=== PATIENT | female | born 1980 | race Two or more races ===

== ENCOUNTER 2023-06-04 07:29 | Inpatient (IN) | payer MEDICAID ==
[2023-05-27 14:06] LABS: BASOPHILS # (AUTO) 0.1 X10'3 (0-0.2); BASOPHILS % (AUTO) 0.6 % (0-1); EOSINOPHILS # (AUTO) 0.2 X10'3 (0-0.9); EOSINOPHILS % (AUTO) 1.5 % (0-6); LYMPHOCYTES # (AUTO) 2.6 X10'3 (1.1-4.8); LYMPHOCYTES % (AUTO) 24.4 % (21-51); MEAN CORPUSCULAR HEMOGLOBIN 30.8 PG (27.0-31.0); MEAN CORPUSCULAR HGB CONC 33.6 g/dL (33.0-36.5); MEAN CORPUSCULAR VOLUME 91.6 FL (78-98); MEAN PLATELET VOLUME 8.6 FL (7.4-10.4); MONOCYTES # (AUTO) 0.8 X10'3 (0-0.9); MONOCYTES % (AUTO) 7.6 % (2-12); NEUTROPHILS # (AUTO) 7.1 X10'3 (1.8-7.7); NEUTROPHILS % (AUTO) 65.9 % (42-75); PRE OP HEMATOCRIT 41.4 % (35.0-45.0); PRE OP HEMOGLOBIN 13.9 g/dL (12.0-16.0); PRE OP PLATELET COUNT 294 X10'3 (140-440); PRE OP WHITE BLOOD COUNT 10.8 10'3 (4.8-10.8); RED BLOOD COUNT 4.52 X10'6 (4.20-5.60); RED CELL DISTRIBUTION WIDTH 14.3 % (11.5-14.5)
[2023-05-27 14:29] LABS: ALBUMIN 3.5 G/DL (3.4-5.0); ALBUMIN/GLOBULIN RATIO 0.9 (1.1-1.5); ALKALINE PHOSPHATASE 80 IU/L (46-116); BLOOD UREA NITROGEN 17 MG/DL (7-18); CALCIUM 9.2 MG/DL (8.5-10.1); CHLORIDE 102 MMOL/L (99-107); CREATININE 0.74 MG/DL (0.40-0.90); PRE OP ALT 25 U/L (30-65); PRE OP ANION GAP 7 (8-16); PRE OP AST 15 U/L (10-37); PRE OP BILIRUB, TOTAL 0.3 MG/DL (0.0-1.0); PRE OP GLUCOSE 93 MG/DL (70-104); PRE OP POTASSIUM 4.2 MMOL/L (3.4-5.1); PRE OP SODIUM 136 MMOL/L (135-145); TOTAL CARBON DIOXIDE 26.8 MMOL/L (24-32); TOTAL PROTEIN 7.5 G/DL (6.4-8.2); eGFR 85 ML/MIN
[2023-05-27 17:26] LABS: BETA HCG,QUANTITATIVE 2 mIU/ml
[~2023-06-04] VITALS: Ht 165.1 cm; Wt 145.0 kg
[2023-06-04] VITALS (20 sets, daily range): BP systolic 99–130; BP diastolic 56–85; PULSE 60–90; RESP 14–28; TEMP 96.6–98.4; O2SAT 93–98
[~2023-06-04 07:29] MED LIST: IBUP-1985 PO; LISI10TA27 PO; ceFAZolin inj. 3,000 MG in normal saline 100ml IV soln 100 ML IV ONE; famotidine 20mg tablet PO ONE; ringers solution, lacted 1,000 ML IV SCH
[2023-06-04] MEDS ORDERED: propofol inj 20 ML IV ONE ×2 (10:21)
[2023-06-04] MEDS ORDERED: fentaNYL /PF 50mcg/ml 5ml ampule ONE (10:21)
[2023-06-04] MEDS ORDERED: LIDOcaine 2% (20mg/ml) 5ml vial ONE (10:21)
[2023-06-04] MEDS ORDERED: succinylcholine 20mg/ml inj IV ONE (10:22)
[2023-06-04] MEDS ORDERED: ondansetron/PF 4mg/2ml inj ONE (10:22)
[2023-06-04] MEDS ORDERED: ROPIVAcaine 0.5% (5mg/ml) 30ml vial ONE (10:23)
[2023-06-04] MEDS ORDERED: desflurane 240ml liquid inh. IH ONE (10:25)
[2023-06-04] MEDS ORDERED: dexamethasone sod phosphate 10mg/ml inj ONE (10:25)
[2023-06-04] MEDS ORDERED: ringers solution, lacted 1,000 ML IV SCH (11:15)
[2023-06-04] MEDS ORDERED: hydrALAZINE 20mg/ml inj. IV PRN (11:15)
[2023-06-04] MEDS ORDERED: ondansetron/PF 4mg/2ml inj IV PRN ×2 (11:15→12:55)
[2023-06-04] MEDS ORDERED: morphine 2 MG/ML inj. syringe IV PRN (11:15)
[2023-06-04] MEDS ORDERED: fentaNYL/PF 50MCG/1 ML 2ML syringe IV PRN ×2 (11:15)
[2023-06-04] MEDS ORDERED: labetalol 20mg/4ml (5mg/ml) syringe IV PRN (11:15)
[2023-06-04] MEDS ORDERED: acetaminophen 1,000mg/100ml IV 100 ML IV ONE (11:52)
--- NOTE | 2023-06-04 12:24 | NUR ---
Received from OR via [facility] TO RR 7, accompanied by Anesthesiologist DR GRAHAM and report given by Anesthesiolgist. PT PRESENTS WITH PIV 20G LEFT FOREARM, RIGHT SHOULDER WRAP WIT POWDER PACK AND SLING, SPO2 96% 6L MASK, VSS. Addendum: 06/04/23 at 1238 by Sruthi Alfaro RN, RN Amended: Links added.
--- NOTE | 2023-06-04 12:45 | NUR ---
PT MOVED FROM A GURNEY TO HOSPITAL BED. Addendum: 06/04/23 at 1310 by Sruthi Alfaro RN, RN Amended: Links added.
[2023-06-04] MEDS: morphine 4 MG/ML inj SYRINge IV PRN ×2 (12:51→13:08)
[2023-06-04] MEDS ORDERED: oxyCODONE IR 5mg (immed. release) tablet PO PRN (12:55)
[2023-06-04] MEDS ORDERED: magnesium hydroxide 30ml (MOM) UD suspension PO PRN (12:55)
[2023-06-04] MEDS ORDERED: HYDROmorphone 1 mg/ml syringe IV PRN (12:55)
[2023-06-04] MEDS ORDERED: ibuprofen 200mg tablet PO PRN (12:55)
[2023-06-04] MEDS ORDERED: diphenhydrAMINE 25mg capsule PO PRN ×2 (12:55)
[2023-06-04] MEDS ORDERED: acetaminophen 325mg tablet PO PRN (12:55)
[2023-06-04] MEDS ORDERED: bisacodyl 10mg suppository rectal RC PRN (12:55)
[2023-06-04] MEDS ORDERED: naloxone 0.4 mg/ml inj IV PRN (12:55)
[2023-06-04] MEDS ORDERED: HYDROmorphone inj. 0.5 MG/0.5 ML DISP.SYRIN IV PRN (12:55)
--- NOTE | 2023-06-04 13:44 | NUR ---
Report called to receiving nurse MICHAEL ALEJANDRO. Transferred via [facility] B[facility] TO ROOM 4006. BED IN LOW LOCKED POSITION WITH CALL LIGHT IN REACH, PT HOOKED UP TO BEDSIDE VIATLS MACHINE. PT CALLED AND REPRTED PT IN ROOM 4006. PT'S CHART TAKEN TO NURSES STATION. Belongings 1 PT BELONGING BAG TAKEN TO ROOM WITH PT. Special Issues communicated to receiving nurse. Addendum: 06/04/23 at 1355 by Sruthi Alfaro RN RN Amended: Links added.
--- NOTE | 2023-06-04 13:45 | NUR ---
Assumed patient care, patient orient to call light, room and fall precautions. questions answered.
[2023-06-04] MEDS: acetaminophen 325mg tablet PO SCH ×2 (13:59→20:00)
[2023-06-04] MEDS: ceFAZolin/D5W- 1GM premix 50 ML IV SCH (16:15)
[2023-06-04] MEDS: potassium cl 20mEq in 1/2 NS 1,000 ML IV SCH ×2 (16:55→20:15)
--- NOTE | 2023-06-04 18:00 | NUR ---
Patient in room ORTHO 4006. I have received report from MARLENY Pink and had the opportunity to ask questions and assume patient care.
--- NOTE | 2023-06-04 18:10 | NUR ---
Problems reprioritized. Patient report given, questions answered & plan of care reviewed with Lucille ALEJANDRO.
[2023-06-04] MEDS ORDERED: sennosides 8.6mg tablet PO SCH (21:00)
[2023-06-05] MEDS: ceFAZolin/D5W- 1GM premix 50 ML IV SCH (00:02)
[2023-06-05] MEDS: acetaminophen 325mg tablet PO SCH ×2 (01:38→07:21)
[2023-06-05 02:00] VITALS: BP 107/65; PULSE 62; RESP 16; TEMP 98.2; O2SAT 95
[2023-06-05] MEDS: potassium cl 20mEq in 1/2 NS 1,000 ML IV SCH ×2 (03:30→12:55)
[2023-06-05 06:00] VITALS: BP 106/68; PULSE 55; RESP 16; TEMP 97.9; O2SAT 96
--- NOTE | 2023-06-05 06:20 | NUR ---
Problems reprioritized. Patient report given, questions answered & plan of care reviewed with MARLENY Monte.
[2023-06-05 08:00] VITALS: RESP 16; O2SAT 96
[2023-06-05] MEDS ORDERED: lisinopril 10 MG tablet PO SCH (08:00)
[2023-06-05] MEDS ORDERED: aspirin 325mg tablet PO SCH (08:30)
[2023-06-05 09:24] LABS: BASOPHILS % (AUTO) 0.3 % (0-1); EOSINOPHILS % (AUTO) 0.1 % (0-6); HEMATOCRIT 38.7 % (35.0-45.0); HEMOGLOBIN 12.7 g/dl (12.0-16.0); LYMPHOCYTES # (AUTO) 1.8 X10'3 (1.1-4.8); LYMPHOCYTES % (AUTO) 13.6 % (21-51); MEAN CORPUSCULAR HEMOGLOBIN 30.4 PG (27.0-31.0); MEAN CORPUSCULAR HGB CONC 32.9 g/dL (33.0-36.5); MEAN CORPUSCULAR VOLUME 92.3 FL (78-98); MEAN PLATELET VOLUME 9.2 FL (7.4-10.4); MONOCYTES # (AUTO) 0.9 X10'3 (0-0.9); MONOCYTES % (AUTO) 6.4 % (2-12); NEUTROPHILS # (AUTO) 10.7 X10'3 (1.8-7.7); NEUTROPHILS % (AUTO) 79.6 % (42-75); PLATELET COUNT 255 X10'3 (140-440); RED CELL DISTRIBUTION WIDTH 14.6 % (11.5-14.5); WHITE BLOOD COUNT 13.5 X10'3 (4.5-11.0)
[2023-06-05 09:29] LABS: ANION GAP 6 (8-16); CHLORIDE 103 MMOL/L (99-107); POTASSIUM 3.9 MMOL/L (3.5-5.1); SODIUM 136 MMOL/L (135-145); TOTAL CARBON DIOXIDE 26.7 MMOL/L (24-32)
[2023-06-05] MEDS: oxyCODONE IR 5mg (immed. release) tablet PO PRN ×2 (09:41→13:50)
[2023-06-05 10:00] VITALS: BP 109/64; PULSE 77; RESP 16; RESP 20; TEMP 97.3; O2SAT 96
--- NOTE | 2023-06-05 10:00 | NUR ---
Patient assessment completed. All primary caer given to MARLENY Monte, I am available for questions or concerns.
[2023-06-05 13:50] VITALS: RESP 16
--- NOTE | 2023-06-05 15:32 | NUR ---
Pt stable for d/c. Pt signed all d/c paperwork, IV D/C. Patient left with powder packs and personal belongings. Family present at the time of discharge. Patient was assisted down to lobby with the assistance of 1 staff member via wheelchair and got into private vehicle with family to go home. D/C @ 3054.
[2023-06-06] MEDS ORDERED: acetaminophen 325mg tablet PO PRN (12:55)
== END 2023-06-05 14:00 | disposition home or self-care (01) | DRG 317 ==
LOC: PAS IN 07:29 → EDSTATUS 07:30 → ORTHO 4S 13:45
PROVIDERS: ADMIT Orthopaedic Surgery; ATTEND Orthopaedic Surgery
PROC: 3E0T3BZ Introduction of Anesthetic Agent into Peripheral Nerves and Plexi, Percutaneous Approach (ICD-10-PCS; 2023-06-04)
PROC: 3E0T33Z Introduction of Anti-inflammatory into Peripheral Nerves and Plexi, Percutaneous Approach (ICD-10-PCS; 2023-06-04)
PROC: 0PB94ZZ Excision of Right Clavicle, Percutaneous Endoscopic Approach (ICD-10-PCS; 2023-06-04)
PROC: 0LM14ZZ Reattachment of Right Shoulder Tendon, Percutaneous Endoscopic Approach (ICD-10-PCS; principal; 2023-06-04 10:25)
DX: M75.121 Complete rotator cuff tear or rupture of right shoulder, not specified as traumatic (principal); Z68.43 Body mass index [BMI] 50.0-59.9, adult; M19.011 Primary osteoarthritis, right shoulder; E66.01 Morbid (severe) obesity due to excess calories; I10 Essential (primary) hypertension; E03.9 Hypothyroidism, unspecified; G47.30 Sleep apnea, unspecified; M75.21 Bicipital tendinitis, right shoulder; M75.41 Impingement syndrome of right shoulder; G89.29 Other chronic pain; M75.51 Bursitis of right shoulder; Z98.891 History of uterine scar from previous surgery
CPT/HCPCS: 36415; 80051; 80053; 82948; 84702; 85025; 97161; 97530; A4615; G0378; J0131; J0330; J0690; J1100; J1170; J2270; J2405; J2704; J2795; J3010; J3480; J3490; J7120

== ENCOUNTER 2025-07-04 16:51 | Emergency (ER) | payer MEDICAID ==
[~2025-07-04] VITALS: Ht 165.1 cm; Wt 132.9 kg
[~2025-07-04 16:51] MED LIST changes: -IBUP-1985 PO; +IBUP600T52 PO; -ceFAZolin inj. 3,000 MG in normal saline 100ml IV soln 100 ML IV ONE; -famotidine 20mg tablet PO ONE; -ringers solution, lacted 1,000 ML IV SCH
--- NOTE | 2025-07-04 17:03 | ELECTROCARDIOGRAPH REPORT ---
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
[2025-07-04 17:47] LABS: MEAN PLATELET VOLUME 9.2 FL (7.4-10.4); RED CELL DISTRIBUTION WIDTH 14.3 % (11.5-14.5)
--- NOTE | 2025-07-04 17:47 | RADIOLOGY REPORT ---
CLINICAL INDICATION: ELBOW PAIN LEFT TECHNIQUE: DI ELBOW, COMPLETE (3VW MIN) COMPARISON: None FINDINGS/IMPRESSION: : There is no evidence of acute fracture or dislocation. Soft tissues are unremarkable.
--- NOTE | 2025-07-04 17:50 | RADIOLOGY REPORT ---
EXAM: DI CHEST,SINGLE VIEW CLINICAL HISTORY: CP TECHNIQUE: Single AP view of the chest WID: COMPARISON: None FINDINGS: Lines and tubes: None Chest: The heart size and pulmonary vasculature is within normal limits. No pleural effusion, pneumothorax, or consolidation. The osseous structures are grossly intact. IMPRESSION: 1. No acute cardiopulmonary abnormality.
[2025-07-04 18:28] LABS: CREATININE 0.72 MG/DL (0.40-0.90); PRO BRAIN NATRIURETIC PEPTIDE 65 PG/ML (0-125); TOTAL CARBON DIOXIDE 30.0 MMOL/L (24-32); eCRCL 88 ML/MIN; eGFR 87 ML/MIN
[2025-07-04 21:34] VITALS: BP 118/70; PULSE 92; RESP 16; TEMP 98.3; O2SAT 98
--- NOTE | 2025-07-04 21:55 | Physician Documentation ---
History of Present Illness ~ Chief Complaint: Arm Pain Stated Complaint: L ARM PAIN Time Seen by MD: 18:21 Mode of Arrival: POV HPI 44-year-old obese female who presents to the emergency department with a vague complaints of left upper extremity pain with waxing and waning left upper chest discomfort. Symptoms has been present for approximately 20 days. There has been no reported palpitations and/or near-syncope or syncope. No reported dyspnea on exertion or orthopnea. Pain has been persistent to just distal the lateral condyle. There is no change in girth or asymmetry of upper extremities. There is no facial plethora. She does report that last year she had surgery on her right shoulder and feels that she may be overdoing it with a left upper extremity and compensation. Tetanus within 5 years: Yes Medication Reconciliation Allergies: Coded Allergies: No Known Drug Allergies (Verified Allergy, Unknown, 06/03/23) Scheduled Ibuprofen* (Motrin*), 1 TAB PO Q8H Lisinopril (Lisinopril), 1 TAB PO DAILY, (Reported) Scheduled PRN Ibuprofen (Ibuprofen), 1 TAB PO PRN PRN for pain, (Reported) Review of Systems All Other Systems at this time: Reviewed and Negative Constitutional: Reports: see HPI Respiratory: Reports: see HPI Cardiovascular: Reports: see HPI Musculoskeletal: Reports: see HPI Physical Exam Vital Signs: RN Vital Signs have been reviewed: Yes, Temperature: 98.3, Source: Oral, Heart Rate: 92, Respiratory Rate: 16, BP: 118/70, Pulse Oximetry: 98, Weight: 132.900 Oxygen Flow Rate: 0 General Appearance: alert, WD/WN, other (Anxious) EENT: PERRL/EOMI Neck: normal inspection Respiratory: lungs clear Chest: no accessory muscle use Cardiovascular: normal peripheral pulses; No: no gallop, no JVD, no murmur, tachycardia, diastolic murmur, systolic murmur Gastrointestinal: non-tender Back: normal inspection Shoulder: normal inspection Elbow/Forearm: other (Tenderness to palpation of the lateral epicondyle) Wrist: normal inspection Hand: normal inspection Digit: normal inspection Skin: normal color Neurologic: oriented x4 Psychiatric: normal mood/affect Progress Results/Orders Results/Orders Orders - MINNIE SPARKS PAC Vl Venous (07/04/25 20:02) Completed Orders - MINNIE SPARKS PAC Vl Venous (07/04/25 20:02) Vital Signs 07/04/25 07/04/25 07/04/25 07/04/25 16:54 19:19 19:21 20:35 Temp 98.3 98.3 98.3 Pulse 101 104 76 Resp 18 16 16 B/P (MAP) 168/93 162/94 (116) 125/69 (87) Pulse Ox 98 100 98 O2 Flow Rate 0 0 0 07/04/25 21:34 Temp 98.3 Pulse 92 Resp 16 B/P (MAP) 118/70 (86) Pulse Ox 98 O2 Flow Rate 0 Laboratory Tests Test 07/04/25 17:20 07/04/25 19:05 White Blood Count 8.6 Red Blood Count 4.50 Hemoglobin 13.5 Hematocrit 40.6 Mean Corpuscular Volume 90.3 Mean Corpuscular Hemoglobin 30.0 Mean Corpuscular Hemoglobin Concent 33.3 Red Cell Distribution Width 14.3 Platelet Count 292 Mean Platelet Volume 9.2 Neutrophils (%) (Auto) 65.1 Lymphocytes (%) (Auto) 25.4 Monocytes (%) (Auto) 7.0 Eosinophils (%) (Auto) 1.9 Basophils (%) (Auto) 0.6 Neutrophils # (Auto) 5.6 Lymphocytes # (Auto) 2.2 Monocytes # (Auto) 0.6 Eosinophils # (Auto) 0.2 Basophils # (Auto) 0.1 CBC Comment Sodium Level 142 Potassium Level 3.8 Chloride Level 105 Carbon Dioxide Level 30.0 Anion Gap 7 L Blood Urea Nitrogen 15 Creatinine 0.72 Estimated GFR/1.73 m2 87 BUN/Creatinine Ratio 20.8 H Glucose Level 106 H Calcium Level 8.3 L Troponin I High Sensitivity 4 5 Pro-B-Type Natriuretic Peptide 65 Albumin 3.6 Chemistry Comments Troponin I High Sens Percent Delta 25 Troponin I Hi Sens Absolute Change 1 Medical Decision Making Additional information obtaine: N/A Findings After extensive workup that began in triage her examination history is consistent with lateral epicondylitis. Ultrasound imaging to evaluate for thrombus and laboratory screening, chest x-ray and EKG all within normal limits. Patient is safe for discharge in the emergency department with instructions to follow up with the primary care physician for consideration of procedural care by orthopedist and to obtain epicondyle band for comfort and support. General Diff Dx:Considerations: Include: Abrasion, Contusion, Fracture, Hematoma, Laceration, Malunion, Neurovascular injury, Open fracture, Sprain, Ulcer, Other (SVS) Shoulder Diff Dx:Consideration: Include: Bicipital tendonitis, Calcific tendonitis, Impingement syndrome, Rotator cuff injury, Other Elbow Diff Dx:Considerations: Include: Radial head subluxation, Rheumatoid arthritis, Septic, Sprain, Other (Tripped over) Wrist Diff Dx:Considerations: Include: Other Hand Diff Dx:Considerations: Include: Other Finger Diff Dx:Considerations: Include: Other (ntributory contributory) Departure Disposition: HOME / SELF CARE / HOMELESS Impression: Primary Impression: Lateral epicondylitis Qualified Codes: M77.12 - Lateral epicondylitis, left elbow Discharge Instructions: Epicondylitis, Lateral (Tennis Elbow) with Rehab- SportsMed, Tendinitis Additional Instructions: Please begin ibuprofen for tendonitis. Please visit your local pharmacy and obtain a tendinitis band for your forearm. Make follow up appointment with the primary care physician. All screening labs and imaging obtained in the emergency department tonight are all reassuring. Thank you for visiting [facility]. Referrals: NO PRIMARY CARE PROVIDER (PCP) Prescriptions Ibuprofen* (Motrin*) 400 Mg Tablet 1 TAB PO Q8H for pain or fever for 10 Days, #30 TAB Prov: MINNIE SPARKS 07/04/25 Education Educated: Patient Educated regarding: diagnosis, treatment, prognosis, need for follow up Signature Scribe Signature: . Attestation: . MINNIE SPARKS Jul 04, 2025 21:55
[2025-07-04] MEDS ORDERED: IBUP-1984 PO (21:56)
--- NOTE | 2025-07-04 22:12 | VASCULAR REPORT ---
RIGHT Upper Extremity Venous Duplex CLINICAL HISTORY: Left arm pain COMPARISON: None TECHNIQUE: Duplex Doppler evaluation of the venous system of the left lower neck and upper extremity including color Doppler and spectral/pulsed waveform analysis was performed. FINDINGS: The internal jugular vein demonstrates appropriate compressibility and waveform variability. The subclavian vein is patent on color Doppler evaluation without intraluminal thrombus and demonstrates waveform variability. The visualized portion of the brachiocephalic vein is patent on color Doppler evaluation without intraluminal thrombus and demonstrates waveform variability. The axillary vein demonstrates appropriate compressibility and waveform variability. The brachial veins demonstrate appropriate compressibility and patency on Doppler evaluation. The basilic vein demonstrates appropriate compressibility and patency on Doppler evaluation. The cephalic vein demonstrates appropriate compressibility and patency on Doppler evaluation. IMPRESSION: No venous thrombus identified in the left upper extremity vessels evaluated above.
== END 2025-07-04 22:02 | disposition home or self-care (01) ==
LOC: ER 16:51
DX: M77.12 Lateral epicondylitis, left elbow (principal); Z79.899 Other long term (current) drug therapy
CPT/HCPCS: 36415; 71045; 73080; 80048; 83880; 84484; 85025; 93005; 93971; 99285